=== PATIENT | female | born 1955 | race Caucasian/White ===

== ENCOUNTER 2018-10-16 12:31 | Emergency (ER) | payer MEDICARE, OTHER ==
[~2018-10-16] VITALS: Ht 149.9 cm; Wt 64.0 kg
[2018-10-16 12:45] VITALS: BP 167/79; PULSE 80; RESP 16; Ht 149.9 cm; Wt 64.0 kg
--- NOTE | 2018-10-16 13:48 | ERD ---
ER Documentation Chief Complaint Chief Complaint pt is bib self with c/o right foot swelling s/p "bite" HPI Patient is a 63 years old female with no known past medical history presenting to the clinic for right foot swelling X 4 days. She admits to getting bitten by some bike which is followed by mild swelling that has gradually worsened as of now. Patient admits to pruritus and denies taking any OTC medication. Patient denies fever, chills, night sweats, right lower extremity numbness. ROS All systems reviewed and are negative except as per history of present illness. Allergies Allergies: Coded Allergies: Iodinated Contrast- Oral and IV Dye (Verified Allergy, Unknown, 10/16/18) PMhx/Soc History of Surgery: No Anesthesia Reaction: No Hx Neurological Disorder: No Hx Respiratory Disorders: No Hx Cardiac Disorders: No Hx Psychiatric Problems: No Hx Miscellaneous Medical Probl: No Hx Alcohol Use: No Hx Substance Use: No Hx Tobacco Use: No Smoking Status: Never smoker FmHx Family History: No diabetes, No coronary disease, No other Physical Exam Vitals Vital Signs Date Temp Pulse Resp B/P (MAP) Pulse Ox O2 O2 Flow FiO2 Time Delivery Rate 10/16/18 98.3 80 16 167/79 98 12:45 (108) Physical Exam Const: No acute distress Head: Atraumatic Eyes: Normal Conjunctiva Resp: Clear to auscultation bilaterally Cardio: Regular rate and rhythm, no murmurs Neur: Awake and alert Psych: Normal Mood and Affect Right lower extremity exam: Swelling noted on medial lateral ankle without any signs of induration, erythema, perforation. No tenderness to palpation. Procedures/MDM Patient was seen and evaluated for right ankle swelling status post bug bite without complication. Patient was given Solu-Medrol 125 IM and Benadryl 50 mg IM in ED. Patient stable ready for discharge. Follow-up with PCP. Patient will be discharged with Medrol Dosepak and Benadryl. Patient was advised to avoid scratching the area. Departure Diagnosis: Primary Impression: Swelling Condition: Stable Patient Instructions: Peripheral Edema, Unilateral Referrals: [facility] Additional Instructions: Patient advised to return to the ED immediately for new or worsening symptoms. Patient advised to follow up with primary care provider in the next 24-48 hours. Patient verbalized understanding and agrees with treatment plan and course of action. If patient has no primary care they may follow up with [facility] + [facility] [address] [place] [address] or [facility] [address] [place] [address] or [facility] [address] [place] [address] CRISTINA HENDRICKS PA-C Oct 16, 2018 13:48
[2018-10-16] MEDS ORDERED: BEN50 PO (13:49)
[2018-10-16] MEDS ORDERED: MED4DP PO (13:49)
[2018-10-16] MEDS ORDERED: METHYLPREDNISOLONE 125 MG INJ IM ONE (14:00)
[2018-10-16] MEDS ORDERED: DIPHENHYDRAMINE 50 MG INJ IM ONE (14:00)
== END 2018-10-16 14:15 | disposition home or self-care (01) ==
LOC: FTE 12:31
DX: M79.89 Other specified soft tissue disorders (principal)
CPT/HCPCS: 96372; 99284; J1200; J2930